=== PATIENT | male | born 1940 | race Caucasian/White ===

== ENCOUNTER 2024-08-25 14:15 | Inpatient (IN) | payer MEDICARE, OTHER ==
[~2024-08-25] VITALS: Ht 170.2 cm; Wt 54.9 kg
[2024-08-25] MEDS ORDERED: GABA300C PO (14:21)
[2024-08-25] MEDS ORDERED: ESCI10TA PO (14:21)
[2024-08-25] MEDS ORDERED: FAMO20TA8 PO (14:21)
[2024-08-25] MEDS ORDERED: CLON0.5T4 PO (14:22)
[2024-08-25] MEDS ORDERED: OMEP20CA15 PO (14:22)
[2024-08-25] MEDS ORDERED: DRON10CA5 PO (14:22)
[2024-08-25] MEDS ORDERED: DRONABINOL PO SCH (15:00)
[2024-08-25] MEDS ORDERED: VENL150C58 PO (15:07)
[2024-08-25] MEDS ORDERED: ARIP1SOL PO (15:07)
[2024-08-25] MEDS ORDERED: MAGNESIUM HYDROXIDE 30 ML LIQUID UDC PO PRN (18:00)
[2024-08-25 18:59] VITALS: BP 128/85; TEMP 98.8; O2SAT 98
[2024-08-25 20:02] VITALS: BP 126/78; TEMP 98.6; O2SAT 98
[2024-08-25] MEDS: GABAPENTIN 300 MG CAPSULE PO SCH (20:51)
[2024-08-26 08:01] VITALS: BP 102/51; TEMP 98.4; O2SAT 98
[2024-08-26 08:26] LABS: ALANINE AMINOTRANSFERASE 18 U/L (16-63); ALBUMIN 3.2 g/dL (3.4-5.0); ALKALINE PHOSPHATASE 85 U/L (50-136); ASPARTATE AMINOTRANSFERASE 14 U/L (15-37); BILIRUBIN,TOTAL 0.6 mg/dL (0.2-1.0); CALCIUM 9.1 mg/dL (8.5-10.1); CARBON DIOXIDE 32 mmol/L (21-32); CHLORIDE 101 mmol/L (98-107); CREATININE 0.9 mg/dL (0.6-1.3); GLUCOSE 102 mg/dL (74-106); POTASSIUM 4.1 mmol/L (3.5-5.1); SODIUM SERUM 138 mmol/L (136-145); TOTAL PROTEIN, SERUM 6.7 g/dL (6.4-8.2); UREA NITROGEN, BLOOD 26 mg/dL (7-18)
[2024-08-26] MEDS: busPIRone 5 MG TABLET PO SCH (12:17)
[2024-08-26] MEDS: VENLAFAXINE XR 150 MG CAP.SR.24H PO SCH (12:17)
[2024-08-26] MEDS: FAMOTIDINE 20 MG TABLET PO SCH (12:18)
[2024-08-26 16:39] VITALS: BP 147/75; TEMP 98.1; O2SAT 98
[2024-08-26 20:12] VITALS: BP 136/64; TEMP 98.1; O2SAT 96
[2024-08-26] MEDS: ARIPIPRAZOLE 5 MG TABLET PO SCH (20:40)
[2024-08-27 07:52] VITALS: BP 97/53; TEMP 98.2; O2SAT 96
[2024-08-27 15:56] VITALS: BP 100/61; TEMP 98; O2SAT 96
[2024-08-27 20:01] VITALS: BP 101/56; TEMP 98.1; O2SAT 95
[2024-08-28 10:43] VITALS: BP 104/50; TEMP 98.2; O2SAT 98
[2024-08-28] MEDS: LORAZEPAM 0.5 MG TABLET PO PRN (12:29)
[2024-08-28 15:36] VITALS: BP 145/71; TEMP 98; O2SAT 98
[2024-08-28 20:00] VITALS: BP 118/77; TEMP 99.1; O2SAT 96
[2024-08-28] MEDS: ARIPIPRAZOLE 5 MG TABLET PO SCH (20:53)
[2024-08-29 01:45] VITALS: BP 133/85; TEMP 97.7; O2SAT 95
[2024-08-29 03:08] VITALS: BP 127/76; O2SAT 98
[2024-08-29 04:41] VITALS: BP 122/68; O2SAT 98
[2024-08-29 08:02] VITALS: BP 141/69; TEMP 98.2; O2SAT 98
[2024-08-29 09:44] LABS: BASOPHILS % (AUTO) 0.6 % (0.0-2.0); EOSINOPHILS # (AUTO) 0.2 K/uL (0.0-0.7); EOSINOPHILS % (AUTO) 3.4 % (0.0-7.0); HEMATOCRIT 41.3 % (36.7-47.1); HEMOGLOBIN 13.7 g/dL (12.5-16.3); LYMPHOCYTES # (AUTO) 0.5 K/uL (0.8-4.8); LYMPHOCYTES % (AUTO) 7.7 % (20.5-51.5); MEAN CORPUSCULAR HEMOGLOBIN 28.8 uug (23.8-33.4); MEAN CORPUSCULAR HGB CONC 33 g/dL (32.5-36.3); MEAN CORPUSCULAR VOLUME 86.8 fL (73.0-96.2); MONOCYTES # (AUTO) 0.4 K/uL (0.1-1.30); MONOCYTES % (AUTO) 5.5 % (0.0-11.0); NEUTROPHILS # (AUTO) 5.6 K/uL (1.8-8.9); NEUTROPHILS % (AUTO) 82.8 % (38.5-71.5); PLATELET COUNT (AUTO) 271 K/uL (152-348); RED BLOOD CELL COUNT(AUTO) 4.76 MIL/uL (4.06-5.63); RED CELL DISTRIBUTION WIDTH 15.8 % (12.1-16.2); WHITE BLOOD COUNT (AUTO) 6.8 K/uL (3.6-10.2)
[2024-08-29 09:54] LABS: CALCIUM 9.5 mg/dL (8.5-10.1); CARBON DIOXIDE 37 mmol/L (21-32); CHLORIDE 102 mmol/L (98-107); CREATININE 0.8 mg/dL (0.6-1.3); GLUCOSE 114 mg/dL (74-106); SODIUM SERUM 141 mmol/L (136-145); UREA NITROGEN, BLOOD 27 mg/dL (7-18)
[2024-08-29 10:00] LABS: ALANINE AMINOTRANSFERASE 32 U/L (16-63); ALBUMIN 3.3 g/dL (3.4-5.0); ALKALINE PHOSPHATASE 82 U/L (50-136); ASPARTATE AMINOTRANSFERASE 18 U/L (15-37); BILIRUBIN,TOTAL 0.5 mg/dL (0.2-1.0); TOTAL PROTEIN, SERUM 7.2 g/dL (6.4-8.2)
[2024-08-29 10:01] LABS: DIFFERENTIAL COMMENT 1
[2024-08-29] MEDS: MAG HYDROX/AL HYDROX/SIMETH 30 ML LIQUID UDC PO PRN (14:33)
[2024-08-29 16:06] VITALS: BP 145/86; TEMP 98; O2SAT 96
[2024-08-29 20:00] VITALS: BP 115/72; TEMP 98; O2SAT 96
[2024-08-30 08:08] VITALS: BP 125/72; TEMP 98; O2SAT 98
[2024-08-30 15:24] VITALS: BP 102/57; TEMP 98; O2SAT 99
[2024-08-30 20:00] VITALS: BP 115/71; TEMP 99.1; O2SAT 95
[2024-08-31] MEDS: ZOLPIDEM 5 MG TABLET PO PRN (00:35)
[2024-08-31 07:57] VITALS: BP 105/70; TEMP 98.3; O2SAT 98
[2024-08-31 16:19] VITALS: BP 128/82; TEMP 98.1; O2SAT 97
[2024-08-31 20:00] VITALS: BP 125/86; TEMP 100; O2SAT 94
[2024-08-31] MEDS: ACETAMINOPHEN 325 MG TABLET PO PRN (20:59)
[2024-09-01 08:23] VITALS: BP 102/60; TEMP 98.2; O2SAT 98
[2024-09-01 16:09] VITALS: BP 127/73; TEMP 98.3; O2SAT 98
[2024-09-01 20:20] VITALS: BP 113/72; TEMP 98.1; O2SAT 95
[2024-09-02 08:00] VITALS: BP 99/63; TEMP 97.6; O2SAT 94
[2024-09-02 16:00] VITALS: BP 158/87; TEMP 98; O2SAT 96
[2024-09-02] MEDS: busPIRone 5 MG TABLET PO SCH (16:44)
[2024-09-02 20:00] VITALS: BP 135/81; TEMP 98.8; O2SAT 96
[2024-09-02] MEDS: ARIPIPRAZOLE 5 MG TABLET PO SCH (20:12)
[2024-09-03 07:40] VITALS: BP 120/76; TEMP 98; O2SAT 98
== END 2024-09-03 13:00 | DRG 885 ==
LOC: ER 14:17 → GPS 17:00
PROVIDERS: ADMIT Psychiatry & Neurology Psychosomatic Medicine; ATTEND Nurse Practitioner Acute Care
DX: F33.3 Major depressive disorder, recurrent, severe with psychotic symptoms (principal); R45.851 Suicidal ideations; E44.1 Mild protein-calorie malnutrition; Z68.1 Body mass index [BMI] 19.9 or less, adult; L59.8 Other specified disorders of the skin and subcutaneous tissue related to radiation; Y84.2 Radiological procedure and radiotherapy as the cause of abnormal reaction of the patient, or of later complication, without mention of misadventure at the time of the procedure; Y78.1 Therapeutic (nonsurgical) and rehabilitative radiological devices associated with adverse incidents; C76.0 Malignant neoplasm of head, face and neck; K21.9 Gastro-esophageal reflux disease without esophagitis; F41.9 Anxiety disorder, unspecified; E78.5 Hyperlipidemia, unspecified; R79.89 Other specified abnormal findings of blood chemistry; E88.09 Other disorders of plasma-protein metabolism, not elsewhere classified; G62.9 Polyneuropathy, unspecified; Z91.51 Personal history of suicidal behavior; Z91.148 Patient's other noncompliance with medication regimen for other reason; Z79.899 Other long term (current) drug therapy
CPT/HCPCS: 36415; 70450; 85025; 93005